=== PATIENT | female | born 1960 | race Caucasian/White ===

== ENCOUNTER 2022-04-05 09:49 | Outpatient (CLI) | payer BC | END 2022-04-05 09:50 | disposition home or self-care (01) | LOC: CSHMAMMO 09:49 | PROVIDERS: ATTEND Student in an Organized Health Care Education/Training Program | DX: Z12.31 Encounter for screening mammogram for malignant neoplasm of breast (principal); Z80.3 Family history of malignant neoplasm of breast | CPT/HCPCS: 77063; 77067 ==

== ENCOUNTER 2023-04-06 15:09 | Outpatient (CLI) | payer BC | END 2023-04-06 15:10 | disposition home or self-care (01) | LOC: CSHMAMMO 15:09 | PROVIDERS: ATTEND Student in an Organized Health Care Education/Training Program | DX: Z12.31 Encounter for screening mammogram for malignant neoplasm of breast (principal); Z80.3 Family history of malignant neoplasm of breast | CPT/HCPCS: 77063; 77067 ==

== ENCOUNTER 2023-05-06 15:08 | Outpatient (CLI) | payer BC | END 2023-05-06 15:09 | disposition home or self-care (01) | LOC: CSHMAMMO 15:08 | PROVIDERS: ATTEND Student in an Organized Health Care Education/Training Program | DX: Z13.820 Encounter for screening for osteoporosis (principal); E28.39 Other primary ovarian failure; M85.89 Other specified disorders of bone density and structure, multiple sites; Z78.0 Asymptomatic menopausal state | CPT/HCPCS: 77080 ==

== ENCOUNTER 2024-04-09 08:11 | Outpatient (CLI) | payer BC | END 2024-04-09 08:12 | disposition home or self-care (01) | LOC: CSHMAMMO 08:11 | PROVIDERS: ATTEND Family Medicine | DX: Z12.31 Encounter for screening mammogram for malignant neoplasm of breast (principal); Z80.3 Family history of malignant neoplasm of breast | CPT/HCPCS: 77063; 77067 ==

== ENCOUNTER 2025-07-26 08:51 | Outpatient (CLI) | payer BC | END 2025-07-26 08:52 | disposition home or self-care (01) | LOC: CSHCT 08:51 | PROVIDERS: ATTEND Internal Medicine | DX: R91.8 Other nonspecific abnormal finding of lung field (principal) | CPT/HCPCS: 71250 ==